=== PATIENT | female | born 1960 | race Caucasian/White ===

== ENCOUNTER 2023-08-06 07:30 | Outpatient (RCR) | payer BC, SELFPAY | END 2023-09-17 11:29 | disposition home or self-care (01) | PROVIDERS: PCP Family Medicine; Visit Provider Family Medicine | DX: M25.551 Pain in right hip (principal); M25.552 Pain in left hip; G57.01 Lesion of sciatic nerve, right lower limb; Z51.89 Encounter for other specified aftercare | CPT/HCPCS: 97110; 97140; 97161 ==